=== PATIENT | female | born 1990 | race Caucasian/White ===

== ENCOUNTER 2016-10-23 10:24 | Emergency (ER) | payer MEDICAID ==
--- NOTE | 2016-10-23 10:41 | EDPHY ---
H & P Time Seen by Provider: 10/23/16 10:32 HPI/ROS: CHIEF COMPLAINT: Nausea, vomiting. HISTORY OF PRESENT ILLNESS: The patient is a 26-year-old female who presents with nausea and vomiting since 06 this morning. She has been unable to keep food or fluids down. She feels lightheaded when she tries to stand up. She has some epigastric pain and sore throat from vomiting. She denies dizziness, chest pain, shortness of breath, or other complaints. LNMP was 09/08 but she reports she is often irregular. REVIEW OF SYSTEMS: A complete 10-point review of systems was performed and is negative except for those items mentioned in the HPI. Past Medical/Surgical History: Asthma, appendectomy, tubal ligation, cholecystectomy, herniated disc, ovarian cysts. Social History: Smoker, no alcohol use. Smoking Status: Heavy smoker Physical Exam: General Appearance: Alert, no distress Eyes: Pupils equal and round, no conjunctival pallor or injection ENT, Mouth: Mucous membranes moist Neck: Normal inspection Respiratory: Lungs are clear to auscultation Cardiovascular: Regular rate and rhythm Gastrointestinal: Abdomen is soft. Epigastric tenderness. Neurological: A&O, nonfocal, normal gait Skin: Warm and dry, no rash Extremities: Nontender, no pedal edema Psychiatric: Mood and affect normal Constitutional: Initial Vital Signs Temperature (C) 36.5 C 10/23/16 10:28 Heart Rate 100 10/23/16 10:28 Respiratory Rate 22 H 10/23/16 10:28 Blood Pressure 104/64 10/23/16 10:28 O2 Sat (%) 97 10/23/16 10:28 O2 Delivery Mode Room Air Allergies/Adverse Reactions: hydromorphone HCl [From Dilaudid] Allergy (Intermediate, Verified 10/23/16 10:26 ) Itching Home Medications: Medication Instructions Recorded Flovent 07/08/16 Proair 07/08/16 Ondansetron Odt [Zofran Odt 4 mg 4 mg PO Q4 PRN #6 tab 10/23/16 (*)] Seroquel 10/23/16 Medical Decision Making ED Course/Re-evaluation: 26-year-old female presents with 4 hours of nausea and vomiting. She has been unable to keep food or fluids down this morning. An IV was established, IV NS given for dehydration and labs ordered. 4mg IV Zofran administered. WBC elevated at 11.04. Other lab work is unremarkable. 1135: Reassessed patient. She is feeling better and is not nauseated or vomiting. Her abdomen remains soft and non-tender. Tolerating oral fluids well. Abdomen remained soft and nontender on discharge. Differential Diagnosis: Differential diagnosis includes though it is not limited to appendicitis, cholecystitis, diverticulitis, pyelonephritis, bowel perforation, small bowel obstruction. - Data Points Laboratory Results: Laboratory Results 10/23/16 10:55 Medications Given: Discontinued Medications Ondansetron HCl (Zofran) 4 mg IVP EDNOW ONE Stop: 10/23/16 10:58 Last Admin: 10/23/16 10:59 Dose: 4 mg Departure - Departure Disposition: Home, Routine, Self-Care Clinical Impression: Nausea and vomiting Qualifiers: Vomiting type: unspecified Vomiting Intractability: non-intractable Qualified Code(s): R11.2 - Nausea with vomiting, unspecified Condition: Good Instructions: Acute Nausea and Vomiting (ED) Additional Instructions: Clear fluids only for the next 24 hours. Advance diet slowly as tolerable. Follow up with your primary care provider if symptoms are not improving in the next 3-4 days. Return to the emergency department if you experience any serious worsening of condition. Referrals: SON[facility] AKERS,. [Clinic] - As per Instructions Prescriptions: Ondansetron Odt [Zofran Odt 4 mg (*)] 4 mg PO Q4 PRN #6 tab PRN Reason: Nausea Report Scribed for: Rosie Hernandez Report Scribed by: Gordy Poon Date of Report: 10/23/16 Time of Report: 10:40
[2016-10-23] MEDS ORDERED: ONDANSETRON 4 MG/2 ML VIAL IVP ONE (10:57)
[2016-10-23 11:04] LABS: % IMMATURE GRANULYOCYTES 0.3 % (0.0-1.1); ABSOLUTE IMMATURE GRANULOCYTES 0.03 10^3/uL (0.00-0.10); ADD DIFF? NO; ADD MORPH? NO; ADD SCAN? NO; ATYPICAL LYMPHOCYTE FLAG 10 (0-99); FRAGMENT RBC FLAG 0 (0-99); HEMATOCRIT 41.2 % (38.0-47.0); HEMOGLOBIN 13.3 g/dL (12.6-16.3); LEFT SHIFT FLG 0 (0-99); LIPEMIA HEMOLYSIS FLAG 80 (0-99); MEAN CELL HEMOGLOBIN 28.9 pg (27.9-34.1); MEAN CELL HEMOGLOBIN CONCENTR. 32.3 g/dL (32.4-36.7); MEAN CELL VOLUME 89.6 fL (81.5-99.8); MEAN PLATELET VOLUME 9.3 fL (8.7-11.7); PLATELET CLUMPS FLAG 0 (0-99); PLATELET COUNT 303 10^3/uL (150-400); RED CELL DISTRIBUTION WIDTH 13.3 % (11.5-15.2)
[2016-10-23 12:16] VITALS: BP 114/75; PULSE 88; RESP 16; TEMP 97.9; O2SAT 96
== END 2016-10-23 12:17 | disposition home or self-care (01) ==
DX: R11.2 Nausea with vomiting, unspecified (principal); F17.200 Nicotine dependence, unspecified, uncomplicated; J45.909 Unspecified asthma, uncomplicated; Z90.49 Acquired absence of other specified parts of digestive tract
CPT/HCPCS: 96374; J2405

== ENCOUNTER 2016-12-01 12:17 | Emergency (ER) | payer MEDICAID ==
[2016-12-01 12:38] VITALS: BP 127/79; PULSE 95; RESP 16; TEMP 97.5; O2SAT 98
--- NOTE | 2016-12-01 13:27 | EDPHY ---
H & P Stated Complaint: R knee pain x 2 days non traumatic Time Seen by Provider: 12/01/16 13:05 HPI/ROS: Chief Complaint: Right knee pain HPI: The patient presents to the ED with a 2 day history of right anterior knee pain. The patient's pain is over her joint line. She denies associated fall or trauma. She denies locking or instability. She denies fever, IV drug use or additional arthralgias. The patient does have a history of chronic pain from sciatica. Patient denies additional acute complaints. REVIEW OF SYSTEMS: Neuro: [no headache, numbness, weakness] Musculoskeletal: [as above] Skin: [no abrasion or lacerations] Source: Patient Exam Limitations: No limitations - Personal History LMP (Females 10-55): 15-21 Days Ago Current Tetanus/Diphtheria Vaccine: Unsure Current Tetanus Diphtheria and Acellular Pertussis (TDAP): Unsure Tetanus Vaccine Date: < 10 years - Medical/Surgical History Hx Asthma: Yes Hx Chronic Respiratory Disease: No Hx Diabetes: No Hx Cardiac Disease: No Hx Renal Disease: No Hx Cirrhosis: No Hx Alcoholism: No Hx HIV/AIDS: No Hx Splenectomy or Spleen Trauma: No Other PMH: asthma, appendectomy, tubal ligation, Cholecystectomy, HERNIATED DISC , Cysts - ovarian. depression - Social History Smoking Status: Heavy smoker - Physical Exam Exam: General: No acute distress Right knee: Tenderness to palpation noted along the anterior joint line, no significant effusion, normal range of motion, no evidence of warmth or abscess Skin: No erythema or swelling Extremity: No right calf tenderness, negative Holly sign Vascular: Normal capillary refill, 2+ dorsalis pedis and posterior tibial pulses Constitutional: Initial Vital Signs Temperature (C) 36.4 C 12/01/16 12:22 Heart Rate 95 12/01/16 12:22 Respiratory Rate 16 12/01/16 12:22 Blood Pressure 127/79 H 12/01/16 12:22 O2 Sat (%) 98 12/01/16 12:22 O2 Delivery Mode Room Air Allergies/Adverse Reactions: hydromorphone HCl [From Dilaudid] Allergy (Intermediate, Verified 10/23/16 10:26 ) Itching Home Medications: Medication Instructions Recorded Flovent 07/08/16 Proair 07/08/16 Ondansetron Odt [Zofran Odt 4 mg 4 mg PO Q4 PRN #6 tab 10/23/16 (*)] Seroquel 10/23/16 Diclofenac Sodium [Voltaren-XR] 100 mg PO DAILY #10 tab.er.24h 12/01/16 Medical Decision Making ED Course/Re-evaluation: The patient presents to the ED with atraumatic right knee pain which seems to be most consistent with a sprain. The patient will be discharged home with a prescription for anti-inflammatories. She is advised to follow up with our on- call orthopedic surgeon for any unimproved symptoms. Departure - Departure Disposition: Home, Routine, Self-Care Clinical Impression: Knee sprain Condition: Good Instructions: Knee Sprain (ED) Additional Instructions: 1. Please take anti-inflammatories as directed for next 5 days. You have been given a prescription for diclofenac. You may take this or 600 mg of ibuprofen 3 times a day. 2. Please follow up with your primary care provider for any unimproved symptoms. 3. You have been given the number of our on-call orthopedic surgeon for any persistent knee pain. Referrals: Cristy Mazariegos MD [Primary Care Provider] - As per Instructions Graeme Yang MD [Medical Doctor] - As per Instructions
== END 2016-12-01 13:38 | disposition home or self-care (01) ==
DX: S83.91XA Sprain of unspecified site of right knee, initial encounter (principal); J45.909 Unspecified asthma, uncomplicated; F17.200 Nicotine dependence, unspecified, uncomplicated; X58.XXXA Exposure to other specified factors, initial encounter; Y93.89 Activity, other specified

== ENCOUNTER 2016-12-09 14:55 | Emergency (ER) | payer MEDICAID ==
[2016-12-09 15:33] VITALS: RESP 16; TEMP 98.1
[2016-12-09] MEDS ORDERED: ONDANSETRON 4 MG/2 ML VIAL IVP ONE (17:03)
[2016-12-09] MEDS ORDERED: NS 1,000 ML IV ONE (17:03)
--- NOTE | 2016-12-09 17:07 | EDPHY ---
H & P Time Seen by Provider: 12/09/16 16:56 HPI/ROS: CHIEF COMPLAINT: Nausea vomiting headache HISTORY OF PRESENT ILLNESS: This is a 26-year-old female presenting to the emergency department complaining of nausea, vomiting, decreased p.o. intake x1 week. Patient states the symptoms of nausea vomiting were intermittent in the beginning, but over the past couple of days increased nausea vomiting with intermittent headache epigastric tenderness. Patient states she did attempt to eat several hot dogs today 10-15 minutes afterwards had 1 episode of emesis. Patient denies any fever chills or diarrhea, history of asthma and chronic musculoskeletal pain. Patient states she does intermittently have these episodes on occasion of nausea vomiting but usually resolved. States no other family members are sick at this time. REVIEW OF SYSTEMS: Constitutional: No fever, no chills. Decreased p.o. intake Eyes: No discharge. ENT: No sore throat. Cardiovascular: No chest pain, no palpitations. Respiratory: No cough, no shortness of breath. Gastrointestinal: Epigastric pain, nausea vomiting Genitourinary: No hematuria. Musculoskeletal: No back pain. Skin: No rashes. Neurological: Intermittent headache. Smoking Status: Heavy smoker Physical Exam: General Appearance: Alert, no distress. Eyes: Pupils equal and round no pallor or injection. ENT, Mouth: Mucous membranes moist. Respiratory: There are no retractions, lungs are clear to auscultation. Cardiovascular: Regular rate and rhythm. Gastrointestinal: Abdomen is soft, nondistended, nontender on palpation, no masses, bowel sounds normal. Neurological: No focal deficits Skin: Warm and dry, no rashes. Musculoskeletal: Neck is supple nontender. Extremities: symmetrical, full range of motion. Psychiatric: Patient is oriented X 3, there is no agitation. Constitutional: Initial Vital Signs Temperature (C) 36.7 C 12/09/16 15:04 Heart Rate 92 12/09/16 15:04 Respiratory Rate 16 12/09/16 15:04 Blood Pressure 124/76 H 12/09/16 15:04 O2 Sat (%) 96 12/09/16 15:04 O2 Delivery Mode Room Air Allergies/Adverse Reactions: hydromorphone HCl [From Dilaudid] Allergy (Intermediate, Verified 10/23/16 10:26 ) Itching Home Medications: Medication Instructions Recorded Flovent 07/08/16 Proair 07/08/16 Ondansetron Odt [Zofran Odt 4 mg 4 mg PO Q4 PRN #6 tab 10/23/16 (*)] Seroquel 10/23/16 Diclofenac Sodium [Voltaren-XR] 100 mg PO DAILY #10 tab.er.24h 12/01/16 Ondansetron Odt [Zofran Odt 4 mg 4 mg PO Q4 PRN #10 tab 12/09/16 (*)] Medical Decision Making ED Course/Re-evaluation: Discussed the plan of care: IV fluids for dehydration, CBC, BMP, UA, Zofran, 1810: Patient re-evaluation--> NAD, complaining of nausea with worsening migraine headache. IV Toradol, IV Reglan, IV Decadron, IV Benadryl ordered will re-evaluate patient after meds. 1929: Patient re-evaluation--->NAD, well-appearing, tolerating crackers and juice. Discussed with patient following [facility], patient states she does have an appointment this week. I will send patient home with a prescription nausea medicine. Discharge home---> stable, discussed discharge instructions with patient Differential Diagnosis: Other differential diagnosis considered but not limited to gastroenteritis, influenza and migraine - Data Points Laboratory Results: Laboratory Results 12/09/16 17:10 12/09/16 17:10 12/09/16 12/09/16 12/09/16 17:10 17:10 17:10 WBC RBC Hgb Hct MCV MCH MCHC RDW Plt Count MPV Neut % (Auto) Lymph % (Auto) [place] % (Auto) Eos % (Auto) Baso % (Auto) Nucleat RBC Rel Count Absolute Neuts (auto) Absolute Lymphs (auto) Absolute Monos (auto) Absolute Eos (auto) Absolute Basos (auto) Absolute Nucleated RBC Immature Gran % Immature Gran # Sodium 140 mEq/L mEq/L (134-144) Potassium 4.1 mEq/L mEq/L (3.5-5.2) Chloride 102 mEq/L mEq/L (97-110) Carbon Dioxide 26 mEq/l mEq/l (22-31) Anion Gap 12 mEq/L mEq/L (8-16) BUN 11 mg/dL mg/dL (7-23) Creatinine 0.7 mg/dL mg/dL (0.6-1.0) Estimated GFR > 60 Glucose 90 mg/dL mg/dL (70-100) Calcium 9.3 mg/dL mg/dL (8.5-10.4) Beta HCG, Qual NEGATIVE Urine Color YELLOW Urine Appearance CLEAR Urine pH 6.0 (5.0-7.5) Ur Specific [place] 1.021 (1.002-1.030) Urine Protein NEGATIVE (NEGATIVE) Urine Ketones NEGATIVE (NEGATIVE) Urine Blood NEGATIVE (NEGATIVE) Urine Nitrate NEGATIVE (NEGATIVE) Urine Bilirubin NEGATIVE (NEGATIVE) Urine Urobilinogen NEGATIVE EU EU (0.2-1.0) Ur Leukocyte Esterase NEGATIVE (NEGATIVE) Urine Glucose NEGATIVE (NEGATIVE) 12/09/16 17:10 WBC 11.52 10^3/uL H 10^3/uL (3.80-9.50) RBC 4.44 10^6/uL 10^6/uL (4.18-5.33) Hgb 13.0 g/dL g/dL (12.6-16.3) Hct 39.9 % % (38.0-47.0) MCV 89.9 fL fL (81.5-99.8) MCH 29.3 pg pg (27.9-34.1) MCHC 32.6 g/dL g/dL (32.4-36.7) RDW 12.8 % % (11.5-15.2) Plt Count 307 10^3/uL 10^3/uL (150-400) MPV 9.1 fL fL (8.7-11.7) Neut % (Auto) 72.9 % % (39.3-74.2) Lymph % (Auto) 20.1 % % (15.0-45.0) [place] % (Auto) 5.6 % % (4.5-13.0) Eos % (Auto) 0.9 % % (0.6-7.6) Baso % (Auto) 0.2 % L % (0.3-1.7) Nucleat RBC Rel Count 0.0 % % (0.0-0.2) Absolute Neuts (auto) 8.40 10^3/uL H 10^3/uL (1.70-6.50) Absolute Lymphs (auto) 2.31 10^3/uL 10^3/uL (1.00-3.00) Absolute Monos (auto) 0.65 10^3/uL 10^3/uL (0.30-0.80) Absolute Eos (auto) 0.10 10^3/uL 10^3/uL (0.03-0.40) Absolute Basos (auto) 0.02 10^3/uL 10^3/uL (0.02-0.10) Absolute Nucleated RBC 0.00 10^3/uL 10^3/uL (0-0.01) Immature Gran % 0.3 % % (0.0-1.1) Immature Gran # 0.04 10^3/uL 10^3/uL (0.00-0.10) Sodium Potassium Chloride Carbon Dioxide Anion Gap BUN Creatinine Estimated GFR Glucose Calcium Beta HCG, Qual Urine Color Urine Appearance Urine pH Ur Specific [place] Urine Protein Urine Ketones Urine Blood Urine Nitrate Urine Bilirubin Urine Urobilinogen Ur Leukocyte Esterase Urine Glucose Medications Given: Discontinued Medications Dexamethasone (Decadron Injection) 10 mg IVP EDNOW ONE Stop: 12/09/16 18:10 Last Admin: 12/09/16 18:13 Dose: 10 mg Diphenhydramine HCl (Benadryl Injection) 25 mg IVP EDNOW ONE Stop: 12/09/16 18:10 Last Admin: 12/09/16 18:13 Dose: 25 mg Sodium Chloride (Ns) 1,000 mls @ 0 mls/hr IV ONCE ONE PRN Reason: Wide Open Stop: 12/09/16 17:04 Last Admin: 12/09/16 17:24 Dose: 1,000 mls Ketorolac Tromethamine (Toradol) 30 mg IVP EDNOW ONE Stop: 12/09/16 18:10 Last Admin: 12/09/16 18:14 Dose: 30 mg Metoclopramide HCl (Reglan Injection) 10 mg IVP EDNOW ONE Stop: 12/09/16 18:10 Last Admin: 12/09/16 18:14 Dose: 10 mg Ondansetron HCl (Zofran) 4 mg IVP EDNOW ONE Stop: 12/09/16 17:04 Last Admin: 12/09/16 17:24 Dose: 4 mg Departure - Departure Disposition: Home, Routine, Self-Care Clinical Impression: Nausea and vomiting Qualifiers: Vomiting type: unspecified Vomiting Intractability: non-intractable Qualified Code(s): R11.2 - Nausea with vomiting, unspecified Condition: Good Instructions: Acute Nausea and Vomiting (ED) Additional Instructions: Discussed discharge instructions 1. I would recommend for the next 12-24 hours eating broth, bland foods, no acidic drinks. No fatty or fried foods 2. Increase fluid intake, Gatorade diluted 50% water 3. Follow up with your primary care physician this week Referrals: Cristy Mazariegos MD [Primary Care Provider] - As per Instructions Prescriptions: Ondansetron Odt [Zofran Odt 4 mg (*)] 4 mg PO Q4 PRN #10 tab PRN Reason: Nausea/Vomiting, Use 1st
[2016-12-09 17:19] LABS: % IMMATURE GRANULYOCYTES 0.3 % (0.0-1.1); ABSOLUTE IMMATURE GRANULOCYTES 0.04 10^3/uL (0.00-0.10); ADD DIFF? NO; ADD MORPH? NO; ADD SCAN? NO; ATYPICAL LYMPHOCYTE FLAG 0 (0-99); FRAGMENT RBC FLAG 0 (0-99); HEMATOCRIT 39.9 % (38.0-47.0); LEFT SHIFT FLG 0 (0-99); LIPEMIA HEMOLYSIS FLAG 80 (0-99); MEAN CELL HEMOGLOBIN 29.3 pg (27.9-34.1); MEAN CELL HEMOGLOBIN CONCENTR. 32.6 g/dL (32.4-36.7); MEAN CELL VOLUME 89.9 fL (81.5-99.8); MEAN PLATELET VOLUME 9.1 fL (8.7-11.7); PLATELET CLUMPS FLAG 0 (0-99); PLATELET COUNT 307 10^3/uL (150-400); RED BLOOD CELL COUNT 4.44 10^6/uL (4.18-5.33); RED CELL DISTRIBUTION WIDTH 12.8 % (11.5-15.2)
[2016-12-09 17:23] LABS: COLOR YELLOW; LEUKOCYTE ESTERASE,URINE NEGATIVE (NEGATIVE); NITRITE,URINE NEGATIVE (NEGATIVE)
[2016-12-09 17:35] LABS: ANION GAP 12 mEq/L (8-16); CALCIUM 9.3 mg/dL (8.5-10.4); CARBON DIOXIDE 26 mEq/l (22-31); CHLORIDE 102 mEq/L (97-110); CREATININE 0.7 mg/dL (0.6-1.0); GLOMERULAR FILTRATION RATE > 60; GLUCOSE 90 mg/dL (70-100); POTASSIUM 4.1 mEq/L (3.5-5.2); SODIUM 140 mEq/L (134-144)
[2016-12-09] MEDS ORDERED: METOCLOPRAMIDE 10 MG/2 ML VIAL IVP ONE (18:09)
[2016-12-09] MEDS ORDERED: DEXAMETHASONE 10 MG/ML VIAL IVP ONE (18:09)
[2016-12-09] MEDS ORDERED: KETOROLAC 30 MG/1 ML SDV IVP ONE (18:09)
[2016-12-09 18:57] VITALS: PULSE 72
[2016-12-09 19:46] VITALS: O2SAT 94
[2016-12-09 20:02] VITALS: BP 122/69
== END 2016-12-09 20:01 | disposition home or self-care (01) ==
DX: R11.2 Nausea with vomiting, unspecified (principal); F17.200 Nicotine dependence, unspecified, uncomplicated
CPT/HCPCS: 96374; J1200; J1885; J2405; J2765

== ENCOUNTER → 2018-06-12 | Outpatient (CLI) | payer MEDICAID ==
[~2018-06-12] MED LIST: ACETAMINOPHEN 325 MG TAB PO PRN; FLUMAZENIL 0.5 MG/5 ML MDV IVP PRN; GADOBUTROL 10 ML VIAL IVP ONE; HYDROCODONE/APAP 5/325 TAB PO PRN; MEPERIDINE 25 MG/ML SYR IVP PRN; MIDAZOLAM 2 MG/2 ML VIAL IVP PRN; NALOXONE HCL 0.4 MG/ML INJ IVP PRN; NS 1,000 ML IV SCH; ONDANSETRON 4 MG/2 ML VIAL IVP ONE; ONDANSETRON 4 MG/2 ML VIAL IVP PRN; fentaNYL 100 MCG/2 ML INJ IVP PRN; fentaNYL 100 MCG/2 ML INJ ONE
--- NOTE | 2018-06-12 13:15 | PDGENHP ---
History & Physical Chief Complaint: MRI for syncope Cardiorespiratory Assessment: RRR, lungs clear
--- NOTE | 2018-06-12 13:15 | PDPROPOC ---
Sedation Plan of Care Sedation Plan of Care: vital signs stable, mental status noted, patient educated of risks, benefits, alternatives, patient can tolerate sedation ASA Classification: ASA 1 Planned drugs: fentanyl, midazolam Mallampati Score: Class 1 Mallampati Reference Image: Patient passed 3-3-2 rule?: Yes
[2018-06-12 14:50] VITALS: BP 115/69
== END ==
LOC: FIMAGING 09:51
PROVIDERS: ATTEND Physician Assistant Medical
DX: R55 Syncope and collapse (principal)
CPT/HCPCS: A9585; J2250; J2310; J2405; J3010

== ENCOUNTER 2018-06-29 16:13 | Emergency (ER) | payer MEDICAID ==
[2018-06-29] MEDS ORDERED: LORazepam 2 MG/ML INJ IVP ONE (17:32)
[2018-06-29 17:48] LABS: PLATELET COUNT 355 10^3/uL (150-400)
[2018-06-29] MEDS ORDERED: GADOBUTROL 10 ML VIAL IVP ONE (18:32)
--- NOTE | 2018-06-29 18:42 | EDPHY ---
H & P Stated Complaint: bilat hands and feet tingling x 2-3 days, bk pain, nausea Time Seen by Provider: 06/29/18 16:33 HPI/ROS: CHIEF COMPLAINT: Back pain, abnormal brain MRI HISTORY OF PRESENT ILLNESS: 28-year-old female presents with multiple complaints. She has ongoing low back pain with numbness in both her legs. The back pain is moderate to severe and is hindering her ability to ambulate. No recent change in back pain. Taking Tylenol with minimal relief. She had a prior MRI in 2016 that was unremarkable. Recently she has been seeing a neurologist who performed a brain MRI. On the noncontrast brain MRI, she had a small lesion. The patient is very concerned about this and has an outpatient MRI scheduled. However she would like to have the outpatient brain MRI with contrast performed today. REVIEW OF SYSTEMS: complete 10 point ROS reviewed and is negative except for the noted elements in the HPI - Personal History LMP (Females 10-55): Unknown Tetanus Vaccine Date: < 10 years - Medical/Surgical History Hx Asthma: Yes Hx Chronic Respiratory Disease: No Hx Diabetes: No Hx Cardiac Disease: No Hx Renal Disease: No Hx Cirrhosis: No Hx Alcoholism: No Hx HIV/AIDS: No Hx Splenectomy or Spleen Trauma: No Other PMH: asthma, appendectomy, tubal ligation, Cholecystectomy, HERNIATED DISC , Cysts - ovarian. depression, undiagnosed auto immune-disorder, ?brain lesion 2018 - Social History Smoking Status: Former smoker Alcohol Use: None Drug Use: None Additional Social History: - Physical Exam Exam: General Appearance: Alert, angry and argumentative at times, does not appear to be in pain Eyes: Pupils equal and round, no conjunctival pallor ENT, Mouth: Mucous membranes moist Neck: Normal inspection Respiratory: Lungs are clear to auscultation Cardiovascular: Regular rate and rhythm Gastrointestinal: Abdomen is soft and nontender Back: Normal inspection, diffuse tenderness of the lumbar area without localization Neurological: A&O, motor 5/5, patellar DTRs trace bilaterally Skin: Warm and dry Extremities: Normal inspection Psychiatric: Fluctuating affect Constitutional: Initial Vital Signs Temperature (C) 36.5 C 06/29/18 16:19 Heart Rate 91 18 16:19 Respiratory Rate 16 06/29/18 16:19 Blood Pressure 134/88 H 06/29/18 16:19 O2 Sat (%) 97 06/29/18 16:19 O2 Delivery Mode Room Air Allergies/Adverse Reactions: hydromorphone HCl [From Dilaudid] Allergy (Intermediate, Verified 10/23/16 10:26 ) Itching Iodinated Contrast- Oral and IV Dye Allergy (Verified 06/29/18 16:18) Home Medications: Medication Instructions Recorded Albuterol 06/29/18 Flovent Diskus 06/29/18 Keppra 06/29/18 Plaquenil 200 mg (*) 06/29/18 traMADol HCL [Tramadol HCl] 50 mg PO Q4 PRN #20 tablet 06/29/18 Medical Decision Making - Diagnostics Imaging Results: MRI brain: stable small parietal lesion, nonenhancing; small pituitary nodule Imaging: Discussed imaging studies w/ train caller Radiologist ED Course/Re-evaluation: This patient presents with multiple complaints. I spent a prolonged amount of time trying to figure out the reason for her visit today. She actually has a sheet of paper that lists 20-25 complaints. She becomes quite dramatic and angry when telling me about the complaints and interestingly, she does not appear in pain when she moves on the gurney. However when I examine her, she appears to be in significant pain with any palpation or movement of her back. Her demeanor calms down when I tell her that I will be glad to obtain the previously scheduled outpatient MRI today. Plan is to obtain MRI and then send her home with tramadol. Ativan 1 mg IV given prior to MRI. Pt tolerated MRI well. Results d/w pt and her . Will f/u with neuro. I do not feel that further ED eval is indicated today. Differential Diagnosis: Differential diagnosis for back pain includes muscular pain, herniated disc, epidural abscess, discitis, spine fracture, intra-abdominal causes and urinary tract infection. - Data Points Laboratory Results: Laboratory Results 06/29/18 17:30 06/29/18 17:30 Medications Given: Discontinued Medications Lorazepam (Ativan Injection) 0.5 mg IVP EDNOW ONE Stop: 06/29/18 17:33 Last Admin: 06/29/18 17:45 Dose: 0.5 mg Departure - Departure Disposition: Home, Routine, Self-Care Clinical Impression: Back pain Qualifiers: Back pain location: low back pain Chronicity: chronic Back pain laterality: bilateral Sciatica presence: without sciatica Qualified Code(s): M54.5 - Low back pain Condition: Good Instructions: Back Pain (ED) Additional Instructions: Follow-up with your neurologist this week. Prescriptions: traMADol HCL [Tramadol HCl] 50 mg PO Q4 PRN #20 tablet PRN Reason: moderate pain
[2018-06-29 19:13] VITALS: BP 117/71
== END 2018-06-29 20:11 | disposition home or self-care (01) ==
DX: M54.5 Low back pain (principal); R94.02 Abnormal brain scan
CPT/HCPCS: 96374; A9585; J2060

== ENCOUNTER 2018-07-09 11:23 | Outpatient (CLI) | payer MEDICAID ==
[2018-07-09] MEDS ORDERED: NALOXONE HCL 0.4 MG/ML INJ IVP PRN ×2 (11:34→14:39)
[2018-07-09] MEDS ORDERED: fentaNYL 100 MCG/2 ML INJ IVP PRN (11:34)
[2018-07-09] MEDS ORDERED: MIDAZOLAM 2 MG/2 ML VIAL IVP PRN (11:34)
[2018-07-09] MEDS ORDERED: FLUMAZENIL 0.5 MG/5 ML MDV IVP PRN (11:34)
[2018-07-09] MEDS ORDERED: PROPOFOL/EMULSION 500 MG/50 ML BOTTLE IV ONE (11:44)
[2018-07-09] MEDS ORDERED: PROPOFOL 200 MG/20 ML VIAL ONE (11:44)
[2018-07-09] MEDS ORDERED: NS 1,000 ML IV SCH (11:45)
[2018-07-09 12:05] VITALS: BP 103/66
[2018-07-09] MEDS ORDERED: SUCCINYLCHOLINE CHLORIDE 200 MG/10 ML VIAL ONE (12:22)
[2018-07-09] MEDS ORDERED: ROCURONIUM 100 MG/10 ML VIAL ONE (12:22)
[2018-07-09] MEDS ORDERED: MIDAZOLAM 2 MG/2 ML VIAL ONE (12:51)
[2018-07-09] MEDS ORDERED: GADOBUTROL 10 ML VIAL IVP ONE (13:27)
--- NOTE | 2018-07-09 13:54 | PDANEPAE ---
ANE History of Present Illness Marialuisa Perez, looking for cerebral vascular abnormalities ANE Past Medical History - Cardiovascular History Hx Hypertension: No Hx Arrhythmias: Yes Hx Chest Pain: Yes Hx Coronary Artery / Peripheral Vascular Disease: No Hx CHF / Valvular Disease: No Hx Palpitations: Yes Cardiovascular History Comment: has not been seen by fowl blood tester yet - Pulmonary History Hx COPD: No Hx Asthma/Reactive Airway Disease: Yes Hx Recent Upper Respiratory Infection: No Hx Oxygen in Use at Home: No Hx Sleep Apnea: No Sleep Apnea Screening Result - Last Documented: Negative Pulmonary History Comment: 4 weeks ago stopped smoking - Neurologic History Hx Cerebrovascular Accident: No Hx Seizures: Yes Hx Dementia: No Neurologic History Comment: absent focal sz, last time 07/03/18 - Endocrine History Hx Diabetes: No - Renal History Hx Renal Disorders: No - Liver History Hx Hepatic Disorders: No - Neurological & Psychiatric Hx Hx Neurological and Psychiatric Disorders: Yes 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 - Cancer History Hx Cancer: No - Congenital Disorder History Hx Congenital Disorders: No - GI History Hx Gastrointestinal Disorders: No - Other Health History Other Health History: bruise easily - Chronic Pain History Chronic Pain: Yes (back) - Surgical History Prior Surgeries: appendectomy, cholecystectomy, tubal ligation ANE Review of Systems Review of Systems: - Exercise capacity METS (RN): 4 METS ANE Patient History - Allergies Allergies/Adverse Reactions: hydromorphone HCl [From Dilaudid] Allergy (Intermediate, Verified 07/04/18 12:30 ) Itching Iodinated Contrast- Oral and IV Dye Allergy (Verified 07/04/18 12:30) - Home Medications Home Medications: Albuterol 1 puffs IH PRN PRN 06/29/18 [Last Taken 06/11/18] Flovent Diskus 1 disk IH BID 06/29/18 [Last Taken Unknown] Keppra 1,000 mg PO BID 06/29/18 [Last Taken 07/09/18] Plaquenil 200 mg (*) 200 mg PO BID 06/29/18 [Last Taken Unknown] - Smoking Hx Smoking Status: Former smoker - Family Anes Hx Family Hx Anesthesia Complications: no ANE Labs/Vital Signs - Vital Signs Blood Pressure: 103/66 Heart Rate: 75 Respiratory Rate: 16 O2 Sat (%): 94 Height: 165.1 cm Weight: 95.254 kg ANE Physical Exam - Airway Neck exam: FROM Mallampati Score: Class 1 Mouth exam: normal dental/mouth exam - Pulmonary Pulmonary: no respiratory distress - Cardiovascular Cardiovascular: regular rate and rhythym - ASA Status ASA Status: II ANE Anesthesia Plan Anesthesia Plan: GA w LMA Total IV Anesthesia: No
[2018-07-09] MEDS ORDERED: MIDAZOLAM 2 MG/2 ML VIAL IVP ONE (13:55)
[2018-07-09] MEDS ORDERED: ONDANSETRON 4 MG/2 ML VIAL IVP PRN (14:39)
[2018-07-09] MEDS ORDERED: PROMETHAZINE HCL 25 MG/ML INJ IVP PRN (14:39)
[2018-07-09] MEDS ORDERED: LR 500 ML IV PRN (14:39)
[2018-07-09] MEDS ORDERED: DEXAMETHASONE 4 MG/ML VIAL IVP PRN (14:39)
[2018-07-09] MEDS ORDERED: MEPERIDINE 25 MG/0.5 ML AMP IVP PRN (14:39)
--- NOTE | 2018-07-09 14:39 | POSTANESTH ---
Post Anesthetic Evaluation Cardiovascular Status: Normal, Stable Respiratory Status: Normal, Stable Level of Consciousness/Mental Status: Can Participate in Eval, Mildly Sleepy, Arousable Pain Control: Adequate, Prn Tx Ordered Nausea/Vomiting Control: Adequate, Prn Tx Ordered Complications Possibly Related to Anesthesia: None Noted
== END 2018-07-09 15:30 | disposition home or self-care (01) ==
LOC: FIMAGING 11:23
PROVIDERS: ATTEND Physician Assistant Medical
PROC: B030Y0Z Magnetic Resonance Imaging (MRI) of Brain using Other Contrast, Unenhanced and Enhanced (ICD-10-PCS; principal; 2018-07-09 13:00)
DX: R56.9 Unspecified convulsions (principal); R94.02 Abnormal brain scan; Q85.8 Other phakomatoses, not elsewhere classified; F40.240 Claustrophobia
CPT/HCPCS: A9585; J0330; J2250; J2704